=== PATIENT | female | born 1985 | race Caucasian/White ===

== ENCOUNTER 2019-05-21 11:15 | Outpatient (CLI) | payer OTHER ==
--- NOTE | 2019-05-21 13:24 | MRI ---
MRI Abdomen W WO Con History: K 86.8 pancreatic mass Comparison: None. Findings: Multiplanar multisequence MRI of the abdomen was performed prior to and after the intraveno us ministration of contrast. No significant hepatic steatosis. The aortic contour is nonaneurysmal. There is a filling defect within the right renal pelvis likely calculus measuring approximately 3 mm x 5 mm. Possibly a punctate calculus superior pole left kidney. The liver is unremarkable as well as the spleen. No intrahepatic or extra hepatic biliary dilatation. The portal vein is patent. No pancreatic mass is appreciated. No dilatation of the main pancreatic duct or accessory duct. No retroperitoneal Aortic adenopathy. There is an exophytic right interpolar renal cyst the adrenal glands are unremarka ble. Impression: 1. No pancreatic mass. 2. Nonobstructive bilateral renal calculi. 3. Exophytic simple cyst right kidney. 4. No acute inflammatory process within the abdomen. 4. 4-5 mm subcapsular cyst along the anterior margin superior aspect of the spleen.
== END 2019-05-21 11:16 | disposition home or self-care (01) ==
LOC: SCSMRI 11:15
PROVIDERS: ATTEND Family Medicine
DX: K86.89 Other specified diseases of pancreas (principal); N20.0 Calculus of kidney; D73.4 Cyst of spleen; N28.1 Cyst of kidney, acquired
CPT/HCPCS: 74183